=== PATIENT | female | born 1950 | race Asian ===

== ENCOUNTER 2020-06-16 10:39 | Day surgery (SDC) | payer OTHER, SELFPAY ==
[~2020-06-16] VITALS: Ht 157.5 cm; Wt 49.9 kg
[~2020-06-16 10:39] MED LIST: ALEN70TA27 PO; HCTZ; LOSA1TAB3 PO; SIMV10TA2 PO; SYNTHROID
[2020-06-16] MEDS ORDERED: MEPERIDINE HCL/PF 100 MG/ML AMP ONE (11:07)
[2020-06-16] MEDS ORDERED: MIDAZOLAM HCL 5 MG/5 ML VIAL ONE (11:08)
[2020-06-16] MEDS ORDERED: SIMETHICONE 40 MG/0.6 ML ML ONE (11:09)
[2020-06-16 14:33] VITALS: BP_SYST 158
== END 2020-06-16 14:20 | disposition home or self-care (01) ==
LOC: SDS 10:39 → SMU 10:41 → SDS 14:20
PROVIDERS: ATTEND Internal Medicine Gastroenterology
DX: T85.518A Breakdown (mechanical) of other gastrointestinal prosthetic devices, implants and grafts, initial encounter (principal); I10 Essential (primary) hypertension; Z86.73 Personal history of transient ischemic attack (TIA), and cerebral infarction without residual deficits; E78.5 Hyperlipidemia, unspecified; Y83.8 Other surgical procedures as the cause of abnormal reaction of the patient, or of later complication, without mention of misadventure at the time of the procedure; Z20.828 Contact with and (suspected) exposure to other viral communicable diseases
CPT/HCPCS: 43246; G0378; J2175; J2250; U0003; 43760

== ENCOUNTER 2020-11-08 04:10 | Inpatient (IN) | payer OTHER, SELFPAY ==
[~2020-11-08] VITALS: Ht 165.1 cm; Wt 44.9 kg
[2020-11-08] VITALS (7 sets, daily range): BP systolic 95–138
[2020-11-08] MEDS ORDERED: LIP40 PO (04:47)
[2020-11-08] MEDS ORDERED: HYDR12.55 PO (04:47)
[2020-11-08] MEDS ORDERED: PEG15DRO5 EACH EYE (04:50)
[2020-11-08] MEDS ORDERED: CHOL200026 PO (04:50)
[2020-11-08] MEDS ORDERED: RIVA20TA PO (04:50)
[2020-11-08] MEDS ORDERED: MODA200T48 PO (04:50)
[2020-11-08] MEDS ORDERED: KETO60CR2 TP (04:50)
[2020-11-08 04:56] LABS: BASOPHILS # (AUTO) 0.1 K/uL (0.0-0.2); BASOPHILS % (AUTO) 0.5 % (0.0-2.0); EOSINOPHILS # (AUTO) 0.1 K/uL (0.0-0.4); EOSINOPHILS % (AUTO) 0.6 % (0.0-4.0); HEMOGLOBIN 12.6 g/dL (12.0-16.0); MEAN CORPUSCULAR HEMOGLOBIN 27 pg (27-31); MEAN CORPUSCULAR HGB CONC 33 % (32-36); MEAN CORPUSCULAR VOLUME 82 fL (79.0-98.0); MONOCYTES # (AUTO) 0.5 K/uL (0.0-1.0); MONOCYTES % (AUTO) 3.6 % (1.7-9.3); NEUTROPHILS # (AUTO) 11.1 K/uL (1.8-7.7); NEUTROPHILS % (AUTO) 87.3 % (40.0-70.0); PLATELET COUNT (AUTO) 638 K/uL (130-430); RED BLOOD CELL COUNT(AUTO) 4.63 MIL/uL (4.2-6.2); RED CELL DISTRIBUTION WIDTH 15.9 % (9.0-15.0); WHITE BLOOD COUNT (AUTO) 12.8 K/uL (4.8-10.8)
[2020-11-08 05:09] LABS: ALBUMIN 2.3 g/dL (3.4-4.8); CALCIUM 8.6 mg/dL (8.4-11.0); CREATININE 0.4 mg/dL (0.55-1.30); POTASSIUM 3.7 mmol/L (3.5-5.1); PROTHROMBIN TIME 10.7 SECS (9.5-12.5); TOTAL BILIRUBIN 0.6 mg/dL (0.0-1.0)
[2020-11-08] MEDS ORDERED: LEVOFLOXACIN 500 MG/D5W 100 ML IV ONE (05:30)
[2020-11-08] MEDS ORDERED: AZITHROMYCIN 500 MG in NS 250 ML IV ONE (05:30)
[2020-11-08] MEDS ORDERED: AZITHROMYCIN 500 MG/VIAL (ZITHROMAX) IV ONE (05:45)
[2020-11-08 06:06] LABS: BILIRUBIN,URINE NEGATIVE (NEGATIVE); CLARITY/URINE CLEAR (CLEAR); COLOR,URINE YELLOW (YELLOW); GLUCOSE,URINE NEGATIVE (NEGATIVE); KETONES,URINE NEGATIVE (NEGATIVE); LEUKOCYTE ESTERASE ,URINE NEGATIVE (NEGATIVE); NITRITE, URINE NEGATIVE (NEGATIVE); PROTEIN URINE NEGATIVE (NEGATIVE)
[2020-11-08 06:07] LABS: BLOOD, URINE TRACE (NEGATIVE)
[2020-11-08 06:32] LABS: BACTERIA,URINE None Seen /HPF (None Seen); WBC,URINE 0-3 /HPF (0-3); YEAST,URINE None Seen /HPF (None Seen)
[2020-11-08] MEDS ORDERED: ALBUTEROL SULFATE 0.083% 2.5 MG/3 ML VIAL.NEB INH PRN (07:45)
[2020-11-08] MEDS: CLINDAMYCIN 600 mg/50mL D5W 50 ML IV SCH ×3 (08:00→17:20)
[2020-11-08] MEDS ORDERED: RIVAROXABAN 10 MG TABLET PO ONE (09:00)
[2020-11-08] MEDS: KETOCONAZOLE 2%, 60 GM TOPICAL CREAM. (NIZORAL) TP SCH (09:00)
[2020-11-08] MEDS: AZITHROMYCIN 500 MG in NS 250 ML IV SCH ×2 (11:00→11:39)
[2020-11-08] MEDS: PEG 400/HYPROMELLOSE/GLYCERIN 15 ML DROPS EACH EYE SCH ×4 (11:38→21:13)
[2020-11-08] MEDS: ATORVASTATIN 20 MG TABLET PO SCH (11:38)
[2020-11-08] MEDS: HYDROCHLOROTHIAZIDE 12.5 MG CAPSULE (HCTZ) PO SCH (11:39)
[2020-11-08] MEDS: LOSARTAN POTASSIUM 50 MG TABLET (COZAAR) PO SCH (11:44)
[2020-11-08] MEDS: CEFEPIME 0.5 GM in D5W 50 ML IV SCH (20:10)
[2020-11-08] MEDS: metroNIDAZOLE 250 mg/NS 50 ML IV SCH (20:10)
[2020-11-08] MEDS ORDERED: SIMVASTATIN 10 MG TABLET PO SCH (21:00)
[2020-11-09] VITALS: BP_SYST 120
[2020-11-09 04:00] VITALS: BP_SYST 117
[2020-11-09 07:14] LABS: BASOPHILS # (AUTO) 0.1 K/uL (0.0-0.2); BASOPHILS % (AUTO) 0.6 % (0.0-2.0); EOSINOPHILS # (AUTO) 0.1 K/uL (0.0-0.4); EOSINOPHILS % (AUTO) 1.4 % (0.0-4.0); HEMATOCRIT 32.9 % (36-48); HEMOGLOBIN 11.1 g/dL (12.0-16.0); LYMPHOCYTES # (AUTO) 1.1 K/uL (1.0-5.5); LYMPHOCYTES % (AUTO) 12.1 % (20.5-51.5); MEAN CORPUSCULAR HEMOGLOBIN 29 pg (27-31); MEAN CORPUSCULAR HGB CONC 34 % (32-36); MEAN CORPUSCULAR VOLUME 85 fL (79.0-98.0); MONOCYTES # (AUTO) 0.5 K/uL (0.0-1.0); MONOCYTES % (AUTO) 5.9 % (1.7-9.3); NEUTROPHILS # (AUTO) 7.4 K/uL (1.8-7.7); PLATELET COUNT (AUTO) 526 K/uL (130-430); RED BLOOD CELL COUNT(AUTO) 3.88 MIL/uL (4.2-6.2); RED CELL DISTRIBUTION WIDTH 15.8 % (9.0-15.0); WHITE BLOOD COUNT (AUTO) 9.3 K/uL (4.8-10.8)
[2020-11-09 07:34] LABS: ALBUMIN 2.2 g/dL (3.4-4.8); CALCIUM 8.7 mg/dL (8.4-11.0); CREATININE 0.59 mg/dL (0.55-1.30); POTASSIUM 4.1 mmol/L (3.5-5.1); TOTAL BILIRUBIN 0.4 mg/dL (0.0-1.0)
[2020-11-09] MEDS ORDERED: HYDROCHLOROTHIAZIDE 12.5 MG CAPSULE (HCTZ) ONE (09:42)
[2020-11-09] MEDS ORDERED: LOSARTAN POTASSIUM 50 MG TABLET (COZAAR) ONE (09:42)
[2020-11-09] MEDS: CEFEPIME 0.5 GM in D5W 50 ML IV SCH ×2 (09:44→21:00)
[2020-11-09] MEDS: LOSARTAN POTASSIUM 50 MG TABLET (COZAAR) PO SCH (09:45)
[2020-11-09] MEDS: HYDROCHLOROTHIAZIDE 12.5 MG CAPSULE (HCTZ) PO SCH (09:45)
[2020-11-09] MEDS: ATORVASTATIN 20 MG TABLET PO SCH (09:45)
[2020-11-09] MEDS: RIVAROXABAN 10 MG TABLET PO SCH (09:46)
[2020-11-09] MEDS: PEG 400/HYPROMELLOSE/GLYCERIN 15 ML DROPS EACH EYE SCH ×4 (10:03→20:43)
[2020-11-09] MEDS: KETOCONAZOLE 2%, 60 GM TOPICAL CREAM. (NIZORAL) TP SCH (10:03)
[2020-11-09] MEDS: metroNIDAZOLE 250 mg/NS 50 ML IV SCH ×2 (10:28→20:43)
[2020-11-09 12:05] VITALS: BP_SYST 139
[2020-11-09 16:26] VITALS: BP_SYST 118
[2020-11-09 20:00] VITALS: BP_SYST 129
[2020-11-10] VITALS: BP_SYST 138
[2020-11-10 10:20] VITALS: BP_SYST 124
[2020-11-10] MEDS: PEG 400/HYPROMELLOSE/GLYCERIN 15 ML DROPS EACH EYE SCH ×4 (10:25→20:32)
[2020-11-10] MEDS: metroNIDAZOLE 250 mg/NS 50 ML IV SCH (10:26)
[2020-11-10] MEDS: KETOCONAZOLE 2%, 60 GM TOPICAL CREAM. (NIZORAL) TP SCH (10:26)
[2020-11-10] MEDS: HYDROCHLOROTHIAZIDE 12.5 MG CAPSULE (HCTZ) PO SCH (10:27)
[2020-11-10] MEDS: ATORVASTATIN 20 MG TABLET PO SCH (10:27)
[2020-11-10] MEDS: LOSARTAN POTASSIUM 50 MG TABLET (COZAAR) PO SCH (10:27)
[2020-11-10] MEDS: RIVAROXABAN 10 MG TABLET PO SCH (10:42)
[2020-11-10] MEDS: CEFEPIME 0.5 GM in D5W 50 ML IV SCH ×2 (11:30→20:32)
[2020-11-10 11:33] VITALS: BP_SYST 125
[2020-11-10] MEDS: DEXAMETHASONE SOD PHOSPHATE 10 MG/ML VIAL IVP SCH (12:00)
[2020-11-10] MEDS: ACETAMINOPHEN 325 MG TABLET PO PRN (12:00)
[2020-11-10 15:59] VITALS: BP_SYST 104
[2020-11-10 20:07] VITALS: BP_SYST 113
[2020-11-10] MEDS: DOXYCYCLINE HYCLATE 100 MG CAPSULE PO SCH (20:32)
[2020-11-11] VITALS: BP_SYST 100
[2020-11-11 08:10] LABS: ALBUMIN 2.3 g/dL (3.4-4.8); CALCIUM 9.1 mg/dL (8.4-11.0); CREATININE 0.46 mg/dL (0.55-1.30); POTASSIUM 3.9 mmol/L (3.5-5.1); TOTAL BILIRUBIN 0.3 mg/dL (0.0-1.0)
[2020-11-11 08:13] VITALS: BP_SYST 100
[2020-11-11 09:15] VITALS: BP_SYST 131
[2020-11-11] MEDS: CEFEPIME 0.5 GM in D5W 50 ML IV SCH ×2 (09:31→20:36)
[2020-11-11] MEDS: DOXYCYCLINE HYCLATE 100 MG CAPSULE PO SCH ×2 (09:31→20:36)
[2020-11-11] MEDS: HYDROCHLOROTHIAZIDE 12.5 MG CAPSULE (HCTZ) PO SCH (09:32)
[2020-11-11] MEDS: LOSARTAN POTASSIUM 50 MG TABLET (COZAAR) PO SCH (09:32)
[2020-11-11] MEDS: ATORVASTATIN 20 MG TABLET PO SCH (09:32)
[2020-11-11] MEDS: KETOCONAZOLE 2%, 60 GM TOPICAL CREAM. (NIZORAL) TP SCH (09:33)
[2020-11-11] MEDS: RIVAROXABAN 10 MG TABLET PO SCH (09:33)
[2020-11-11] MEDS: PEG 400/HYPROMELLOSE/GLYCERIN 15 ML DROPS EACH EYE SCH ×4 (09:33→20:37)
[2020-11-11 12:10] VITALS: BP_SYST 121
[2020-11-11] MEDS: DEXAMETHASONE SOD PHOSPHATE 10 MG/ML VIAL IVP SCH (12:36)
[2020-11-11 16:12] VITALS: BP_SYST 123
[2020-11-11 20:00] VITALS: BP_SYST 103
[2020-11-12] VITALS (7 sets, daily range): BP systolic 103–120
[2020-11-12 08:31] LABS: ALANINE AMINOTRANSFERASE 44 U/L (12-78); ALBUMIN 2.1 g/dL (3.4-4.8); ASPARTATE AMINOTRANSFERASE 23 U/L (10-37); CALCIUM 8.9 mg/dL (8.4-11.0); CHLORIDE 101 mmol/L (98-107); GLUCOSE 90 mg/dL (70-99); POTASSIUM 4.3 mmol/L (3.5-5.1); SODIUM SERUM 137 mmol/L (136-145); TOTAL BILIRUBIN 0.2 mg/dL (0.0-1.0); UREA NITROGEN, BLOOD 29 mg/dL (8-21)
[2020-11-12 08:43] LABS: ANION GAP < 3 (5-15); GFR AFRICAN AMERICAN 204 mL/min (>90)
[2020-11-12] MEDS: CEFEPIME 0.5 GM in D5W 50 ML IV SCH ×2 (08:45→20:30)
[2020-11-12] MEDS: PEG 400/HYPROMELLOSE/GLYCERIN 15 ML DROPS EACH EYE SCH ×4 (08:45→20:30)
[2020-11-12] MEDS: LOSARTAN POTASSIUM 50 MG TABLET (COZAAR) PO SCH (08:59)
[2020-11-12] MEDS: HYDROCHLOROTHIAZIDE 12.5 MG CAPSULE (HCTZ) PO SCH (09:00)
[2020-11-12] MEDS: ATORVASTATIN 20 MG TABLET PO SCH (09:00)
[2020-11-12] MEDS: RIVAROXABAN 10 MG TABLET PO SCH (09:00)
[2020-11-12] MEDS: DOXYCYCLINE HYCLATE 100 MG CAPSULE PO SCH ×2 (09:00→20:30)
[2020-11-12] MEDS: KETOCONAZOLE 2%, 60 GM TOPICAL CREAM. (NIZORAL) TP SCH (09:00)
[2020-11-12] MEDS: DEXAMETHASONE SOD PHOSPHATE 10 MG/ML VIAL IVP SCH (11:34)
[2020-11-13] VITALS: BP_SYST 103
[2020-11-13 08:00] VITALS: BP_SYST 101
[2020-11-13 08:30] LABS: ALBUMIN 2.2 g/dL (3.4-4.8); CREATININE 0.43 mg/dL (0.55-1.30); POTASSIUM 3.9 mmol/L (3.5-5.1); TOTAL BILIRUBIN 0.3 mg/dL (0.0-1.0)
[2020-11-13] MEDS: KETOCONAZOLE 2%, 60 GM TOPICAL CREAM. (NIZORAL) TP SCH (08:31)
[2020-11-13] MEDS: PEG 400/HYPROMELLOSE/GLYCERIN 15 ML DROPS EACH EYE SCH ×4 (08:31→20:27)
[2020-11-13] MEDS: ATORVASTATIN 20 MG TABLET PO SCH (08:32)
[2020-11-13] MEDS: DOXYCYCLINE HYCLATE 100 MG CAPSULE PO SCH ×2 (08:32→20:28)
[2020-11-13] MEDS: RIVAROXABAN 10 MG TABLET PO SCH (08:37)
[2020-11-13] MEDS: CEFEPIME 0.5 GM in D5W 50 ML IV SCH ×2 (08:47→20:27)
[2020-11-13] MEDS: HYDROCHLOROTHIAZIDE 12.5 MG CAPSULE (HCTZ) PO SCH (08:48)
[2020-11-13] MEDS: LOSARTAN POTASSIUM 50 MG TABLET (COZAAR) PO SCH (08:48)
[2020-11-13 11:27] VITALS: BP_SYST 97
[2020-11-13] MEDS: DEXAMETHASONE SOD PHOSPHATE 10 MG/ML VIAL IVP SCH (11:29)
[2020-11-13 15:40] VITALS: BP_SYST 96
[2020-11-13 20:00] VITALS: BP_SYST 101
[2020-11-14] VITALS (8 sets, daily range): BP systolic 94–116
[2020-11-14 08:14] LABS: ALANINE AMINOTRANSFERASE 37 U/L (12-78); ALBUMIN 2.2 g/dL (3.4-4.8); ASPARTATE AMINOTRANSFERASE 29 U/L (10-37); CALCIUM 8.6 mg/dL (8.4-11.0); CHLORIDE 101 mmol/L (98-107); CREATININE 0.41 mg/dL (0.55-1.30); GLUCOSE 98 mg/dL (70-99); POTASSIUM 4.3 mmol/L (3.5-5.1); SODIUM SERUM 138 mmol/L (136-145); TOTAL BILIRUBIN 0.3 mg/dL (0.0-1.0); UREA NITROGEN, BLOOD 27 mg/dL (8-21)
[2020-11-14 08:34] LABS: GFR AFRICAN AMERICAN 198 mL/min (>90)
[2020-11-14 08:37] LABS: ANION GAP < 3 (5-15)
[2020-11-14] MEDS: CEFEPIME 0.5 GM in D5W 50 ML IV SCH ×2 (09:06→20:44)
[2020-11-14] MEDS: DOXYCYCLINE HYCLATE 100 MG CAPSULE PO SCH ×2 (09:07→20:44)
[2020-11-14] MEDS: ATORVASTATIN 20 MG TABLET PO SCH (09:07)
[2020-11-14] MEDS: HYDROCHLOROTHIAZIDE 12.5 MG CAPSULE (HCTZ) PO SCH (09:07)
[2020-11-14] MEDS: PEG 400/HYPROMELLOSE/GLYCERIN 15 ML DROPS EACH EYE SCH ×4 (09:08→20:44)
[2020-11-14] MEDS: RIVAROXABAN 10 MG TABLET PO SCH (09:08)
[2020-11-14] MEDS: LOSARTAN POTASSIUM 50 MG TABLET (COZAAR) PO SCH (09:08)
[2020-11-14] MEDS: KETOCONAZOLE 2%, 60 GM TOPICAL CREAM. (NIZORAL) TP SCH (09:09)
[2020-11-14] MEDS: DEXAMETHASONE SOD PHOSPHATE 10 MG/ML VIAL IVP SCH (11:41)
[2020-11-14] MEDS: ACETAMINOPHEN 325 MG TABLET PO PRN (11:55)
[2020-11-15] VITALS: BP_SYST 101
[2020-11-15 07:45] VITALS: BP_SYST 148
[2020-11-15] MEDS: ATORVASTATIN 20 MG TABLET PO SCH (09:43)
[2020-11-15] MEDS: LOSARTAN POTASSIUM 50 MG TABLET (COZAAR) PO SCH (09:44)
[2020-11-15] MEDS: DOXYCYCLINE HYCLATE 100 MG CAPSULE PO SCH ×2 (09:44→21:52)
[2020-11-15] MEDS: HYDROCHLOROTHIAZIDE 12.5 MG CAPSULE (HCTZ) PO SCH (09:44)
[2020-11-15] MEDS: RIVAROXABAN 10 MG TABLET PO SCH (09:45)
[2020-11-15] MEDS: KETOCONAZOLE 2%, 60 GM TOPICAL CREAM. (NIZORAL) TP SCH (09:59)
[2020-11-15] MEDS: PEG 400/HYPROMELLOSE/GLYCERIN 15 ML DROPS EACH EYE SCH ×4 (10:00→21:53)
[2020-11-15 11:35] VITALS: BP_SYST 126
[2020-11-15] MEDS: DEXAMETHASONE SOD PHOSPHATE 10 MG/ML VIAL IVP SCH (12:56)
[2020-11-15 16:09] VITALS: BP_SYST 112
[2020-11-15 20:00] VITALS: BP_SYST 133
[2020-11-16] VITALS: BP_SYST 141
[2020-11-16 07:55] VITALS: BP_SYST 122
[2020-11-16 08:39] LABS: BASOPHILS % (AUTO) 0.4 % (0.0-2.0); EOSINOPHILS # (AUTO) 0.1 K/uL (0.0-0.4); EOSINOPHILS % (AUTO) 0.8 % (0.0-4.0); HEMATOCRIT 35.8 % (36-48); HEMOGLOBIN 11.9 g/dL (12.0-16.0); LYMPHOCYTES % (AUTO) 18.2 % (20.5-51.5); MEAN CORPUSCULAR HEMOGLOBIN 28 pg (27-31); MEAN CORPUSCULAR HGB CONC 33 % (32-36); MEAN CORPUSCULAR VOLUME 83 fL (79.0-98.0); MONOCYTES # (AUTO) 0.8 K/uL (0.0-1.0); MONOCYTES % (AUTO) 7.6 % (1.7-9.3); NEUTROPHILS # (AUTO) 7.9 K/uL (1.8-7.7); PLATELET COUNT (AUTO) 353 K/uL (130-430); RED CELL DISTRIBUTION WIDTH 17.8 % (9.0-15.0); WHITE BLOOD COUNT (AUTO) 10.8 K/uL (4.8-10.8)
[2020-11-16] MEDS: ATORVASTATIN 20 MG TABLET PO SCH (09:14)
[2020-11-16] MEDS: LOSARTAN POTASSIUM 50 MG TABLET (COZAAR) PO SCH (09:14)
[2020-11-16] MEDS: HYDROCHLOROTHIAZIDE 12.5 MG CAPSULE (HCTZ) PO SCH (09:14)
[2020-11-16] MEDS: DOXYCYCLINE HYCLATE 100 MG CAPSULE PO SCH ×2 (09:14→20:44)
[2020-11-16] MEDS: RIVAROXABAN 10 MG TABLET PO SCH (09:15)
[2020-11-16] MEDS: KETOCONAZOLE 2%, 60 GM TOPICAL CREAM. (NIZORAL) TP SCH (09:17)
[2020-11-16] MEDS: PEG 400/HYPROMELLOSE/GLYCERIN 15 ML DROPS EACH EYE SCH ×4 (09:18→20:45)
[2020-11-16] MEDS: DEXAMETHASONE SOD PHOSPHATE 10 MG/ML VIAL IVP SCH (11:57)
[2020-11-16 12:05] VITALS: BP_SYST 123
[2020-11-16 16:02] VITALS: BP_SYST 119
[2020-11-16 20:00] VITALS: BP_SYST 142
[2020-11-17] VITALS: BP_SYST 147
[2020-11-17 08:00] VITALS: BP_SYST 114
[2020-11-17 08:16] VITALS: BP_SYST 147
[2020-11-17] MEDS: PEG 400/HYPROMELLOSE/GLYCERIN 15 ML DROPS EACH EYE SCH ×4 (09:38→20:49)
[2020-11-17] MEDS: LOSARTAN POTASSIUM 50 MG TABLET (COZAAR) PO SCH (09:38)
[2020-11-17] MEDS: KETOCONAZOLE 2%, 60 GM TOPICAL CREAM. (NIZORAL) TP SCH (09:39)
[2020-11-17] MEDS: HYDROCHLOROTHIAZIDE 12.5 MG CAPSULE (HCTZ) PO SCH (09:39)
[2020-11-17] MEDS: ATORVASTATIN 20 MG TABLET PO SCH (09:39)
[2020-11-17] MEDS: RIVAROXABAN 10 MG TABLET PO SCH (09:40)
[2020-11-17 12:00] VITALS: BP_SYST 126
[2020-11-17] MEDS: DEXAMETHASONE SOD PHOSPHATE 10 MG/ML VIAL IVP SCH (12:09)
[2020-11-17] MEDS: AZTREONAM 1 GM in NS 50 ML IV SCH ×2 (14:19→20:52)
[2020-11-17 16:00] VITALS: BP_SYST 131
[2020-11-17 20:45] VITALS: BP_SYST 126
[2020-11-18 00:34] VITALS: BP_SYST 143
[2020-11-18] MEDS: AZTREONAM 1 GM in NS 50 ML IV SCH ×3 (05:45→21:40)
[2020-11-18 07:28] LABS: BASOPHILS # (AUTO) 0.1 K/uL (0.0-0.2); BASOPHILS % (AUTO) 0.4 % (0.0-2.0); EOSINOPHILS # (AUTO) 0.1 K/uL (0.0-0.4); EOSINOPHILS % (AUTO) 0.5 % (0.0-4.0); HEMOGLOBIN 12.1 g/dL (12.0-16.0); LYMPHOCYTES # (AUTO) 2.2 K/uL (1.0-5.5); LYMPHOCYTES % (AUTO) 17.4 % (20.5-51.5); MEAN CORPUSCULAR HEMOGLOBIN 27 pg (27-31); MEAN CORPUSCULAR HGB CONC 33 % (32-36); MEAN CORPUSCULAR VOLUME 82 fL (79.0-98.0); MONOCYTES % (AUTO) 7.6 % (1.7-9.3); NEUTROPHILS # (AUTO) 9.6 K/uL (1.8-7.7); NEUTROPHILS % (AUTO) 74.1 % (40.0-70.0); PLATELET COUNT (AUTO) 336 K/uL (130-430); RED BLOOD CELL COUNT(AUTO) 4.53 MIL/uL (4.2-6.2); RED CELL DISTRIBUTION WIDTH 18.1 % (9.0-15.0); WHITE BLOOD COUNT (AUTO) 12.9 K/uL (4.8-10.8)
[2020-11-18 08:00] VITALS: BP_SYST 127
[2020-11-18] MEDS: PEG 400/HYPROMELLOSE/GLYCERIN 15 ML DROPS EACH EYE SCH ×4 (08:29→20:18)
[2020-11-18] MEDS: KETOCONAZOLE 2%, 60 GM TOPICAL CREAM. (NIZORAL) TP SCH (08:30)
[2020-11-18] MEDS: HYDROCHLOROTHIAZIDE 12.5 MG CAPSULE (HCTZ) PO SCH (08:33)
[2020-11-18] MEDS: ATORVASTATIN 20 MG TABLET PO SCH (08:33)
[2020-11-18] MEDS: RIVAROXABAN 10 MG TABLET PO SCH (08:34)
[2020-11-18] MEDS: LOSARTAN POTASSIUM 50 MG TABLET (COZAAR) PO SCH (08:34)
[2020-11-18] MEDS: DEXAMETHASONE SOD PHOSPHATE 10 MG/ML VIAL IVP SCH (10:45)
[2020-11-18 12:00] VITALS: BP_SYST 118
[2020-11-18 16:00] VITALS: BP_SYST 122
[2020-11-18 20:15] VITALS: BP_SYST 127
[2020-11-19 00:11] VITALS: BP_SYST 127
[2020-11-19] MEDS: AZTREONAM 1 GM in NS 50 ML IV SCH ×3 (05:56→21:45)
[2020-11-19 08:00] VITALS: BP_SYST 131
[2020-11-19] MEDS: ATORVASTATIN 20 MG TABLET PO SCH (08:57)
[2020-11-19] MEDS: LOSARTAN POTASSIUM 50 MG TABLET (COZAAR) PO SCH (08:58)
[2020-11-19] MEDS: RIVAROXABAN 10 MG TABLET PO SCH (09:00)
[2020-11-19] MEDS: KETOCONAZOLE 2%, 60 GM TOPICAL CREAM. (NIZORAL) TP SCH (09:05)
[2020-11-19] MEDS: HYDROCHLOROTHIAZIDE 12.5 MG CAPSULE (HCTZ) PO SCH (09:05)
[2020-11-19] MEDS: PEG 400/HYPROMELLOSE/GLYCERIN 15 ML DROPS EACH EYE SCH ×4 (09:05→21:45)
[2020-11-19] MEDS: DEXAMETHASONE SOD PHOSPHATE 10 MG/ML VIAL IVP SCH (11:06)
[2020-11-19 12:00] VITALS: BP_SYST 110
[2020-11-19] MEDS: TOCILIZUMAB 400 MG in NS 100 ML IV ONE ×3 (15:35→16:55)
[2020-11-19 16:00] VITALS: BP_SYST 112
[2020-11-19 20:00] VITALS: BP_SYST 100
[2020-11-20] VITALS (7 sets, daily range): BP systolic 114–148
[2020-11-20] MEDS: AZTREONAM 1 GM in NS 50 ML IV SCH ×3 (06:18→20:59)
[2020-11-20] MEDS: ATORVASTATIN 20 MG TABLET PO SCH (08:43)
[2020-11-20] MEDS: HYDROCHLOROTHIAZIDE 12.5 MG CAPSULE (HCTZ) PO SCH (08:43)
[2020-11-20] MEDS: LOSARTAN POTASSIUM 50 MG TABLET (COZAAR) PO SCH (08:43)
[2020-11-20] MEDS: RIVAROXABAN 10 MG TABLET PO SCH (08:44)
[2020-11-20] MEDS: KETOCONAZOLE 2%, 60 GM TOPICAL CREAM. (NIZORAL) TP SCH (08:45)
[2020-11-20] MEDS: PEG 400/HYPROMELLOSE/GLYCERIN 15 ML DROPS EACH EYE SCH ×4 (09:16→20:59)
[2020-11-20] MEDS: DEXAMETHASONE SOD PHOSPHATE 10 MG/ML VIAL IVP SCH (11:06)
[2020-11-20 11:41] LABS: CALCIUM 9.1 mg/dL (8.4-11.0); CREATININE 0.47 mg/dL (0.55-1.30); POTASSIUM 4.8 mmol/L (3.5-5.1); TOTAL BILIRUBIN 0.3 mg/dL (0.0-1.0)
[2020-11-20 11:51] LABS: ALBUMIN 2.5 g/dL (3.4-4.8)
[2020-11-20] MEDS: NACL 0.9% 1,000 ML IV SCH (15:19)
[2020-11-21] VITALS: BP_SYST 109
[2020-11-21] MEDS: NACL 0.9% 1,000 ML IV SCH (07:00)
[2020-11-21] MEDS: AZTREONAM 1 GM in NS 50 ML IV SCH ×3 (07:00→21:33)
[2020-11-21 07:44] VITALS: BP_SYST 128
[2020-11-21] MEDS: ATORVASTATIN 20 MG TABLET PO SCH (08:16)
[2020-11-21] MEDS: LOSARTAN POTASSIUM 50 MG TABLET (COZAAR) PO SCH (08:17)
[2020-11-21] MEDS: RIVAROXABAN 10 MG TABLET PO SCH (08:17)
[2020-11-21] MEDS: HYDROCHLOROTHIAZIDE 12.5 MG CAPSULE (HCTZ) PO SCH (08:17)
[2020-11-21] MEDS: PEG 400/HYPROMELLOSE/GLYCERIN 15 ML DROPS EACH EYE SCH ×4 (08:18→21:32)
[2020-11-21] MEDS: KETOCONAZOLE 2%, 60 GM TOPICAL CREAM. (NIZORAL) TP SCH (08:18)
[2020-11-21] MEDS: DEXAMETHASONE SOD PHOSPHATE 10 MG/ML VIAL IVP SCH (11:09)
[2020-11-21 11:14] VITALS: BP_SYST 115
[2020-11-21 15:12] VITALS: BP_SYST 120
[2020-11-21 20:33] VITALS: BP_SYST 116
[2020-11-22 00:29] VITALS: BP_SYST 146
[2020-11-22] MEDS: NACL 0.9% 1,000 ML IV SCH ×3 (01:21→21:57)
[2020-11-22] MEDS: AZTREONAM 1 GM in NS 50 ML IV SCH ×3 (05:41→21:57)
[2020-11-22 09:46] VITALS: BP_SYST 134
[2020-11-22] MEDS: LOSARTAN POTASSIUM 50 MG TABLET (COZAAR) PO SCH (09:47)
[2020-11-22] MEDS: HYDROCHLOROTHIAZIDE 12.5 MG CAPSULE (HCTZ) PO SCH (09:47)
[2020-11-22] MEDS: ATORVASTATIN 20 MG TABLET PO SCH (09:47)
[2020-11-22] MEDS: PEG 400/HYPROMELLOSE/GLYCERIN 15 ML DROPS EACH EYE SCH ×4 (09:48→20:08)
[2020-11-22] MEDS: KETOCONAZOLE 2%, 60 GM TOPICAL CREAM. (NIZORAL) TP SCH (09:48)
[2020-11-22] MEDS: DEXAMETHASONE SOD PHOSPHATE 10 MG/ML VIAL IVP SCH (11:47)
[2020-11-22 11:52] VITALS: BP_SYST 128
[2020-11-22 16:41] VITALS: BP_SYST 120
[2020-11-22 20:08] VITALS: BP_SYST 108
[2020-11-23 00:08] VITALS: BP_SYST 133
[2020-11-23] MEDS: AZTREONAM 1 GM in NS 50 ML IV SCH ×3 (05:48→21:10)
[2020-11-23 07:50] VITALS: BP_SYST 136
[2020-11-23 08:00] VITALS: BP_SYST 136
[2020-11-23] MEDS: KETOCONAZOLE 2%, 60 GM TOPICAL CREAM. (NIZORAL) TP SCH (09:14)
[2020-11-23] MEDS: ATORVASTATIN 20 MG TABLET PO SCH (09:15)
[2020-11-23] MEDS: HYDROCHLOROTHIAZIDE 12.5 MG CAPSULE (HCTZ) PO SCH (09:15)
[2020-11-23] MEDS: LOSARTAN POTASSIUM 50 MG TABLET (COZAAR) PO SCH (09:16)
[2020-11-23] MEDS: PEG 400/HYPROMELLOSE/GLYCERIN 15 ML DROPS EACH EYE SCH ×4 (09:16→21:09)
[2020-11-23] MEDS: DEXAMETHASONE SOD PHOSPHATE 10 MG/ML VIAL IVP SCH (10:28)
[2020-11-23 11:31] VITALS: BP_SYST 114
[2020-11-23 16:00] VITALS: BP_SYST 99
[2020-11-23 20:00] VITALS: BP_SYST 130
[2020-11-24] VITALS: BP_SYST 128
[2020-11-24] MEDS: NACL 0.9% 1,000 ML IV SCH ×2 (04:04→18:45)
[2020-11-24] MEDS: AZTREONAM 1 GM in NS 50 ML IV SCH ×3 (05:04→21:25)
[2020-11-24 07:26] LABS: BASOPHILS % (AUTO) 0.5 % (0.0-2.0); EOSINOPHILS # (AUTO) 0.2 K/uL (0.0-0.4); HEMATOCRIT 35.8 % (36-48); HEMOGLOBIN 11.3 g/dL (12.0-16.0); LYMPHOCYTES # (AUTO) 2.3 K/uL (1.0-5.5); LYMPHOCYTES % (AUTO) 34.3 % (20.5-51.5); MEAN CORPUSCULAR HEMOGLOBIN 26 pg (27-31); MEAN CORPUSCULAR HGB CONC 32 % (32-36); MEAN CORPUSCULAR VOLUME 83 fL (79.0-98.0); MONOCYTES # (AUTO) 0.6 K/uL (0.0-1.0); MONOCYTES % (AUTO) 8.7 % (1.7-9.3); NEUTROPHILS # (AUTO) 3.6 K/uL (1.8-7.7); NEUTROPHILS % (AUTO) 53.5 % (40.0-70.0); PLATELET COUNT (AUTO) 194 K/uL (130-430); RED BLOOD CELL COUNT(AUTO) 4.29 MIL/uL (4.2-6.2); RED CELL DISTRIBUTION WIDTH 18.8 % (9.0-15.0); WHITE BLOOD COUNT (AUTO) 6.8 K/uL (4.8-10.8)
[2020-11-24 08:00] VITALS: BP_SYST 130
[2020-11-24] MEDS: ATORVASTATIN 20 MG TABLET PO SCH (09:01)
[2020-11-24] MEDS: LOSARTAN POTASSIUM 50 MG TABLET (COZAAR) PO SCH (09:01)
[2020-11-24] MEDS: KETOCONAZOLE 2%, 60 GM TOPICAL CREAM. (NIZORAL) TP SCH (09:01)
[2020-11-24] MEDS: HYDROCHLOROTHIAZIDE 12.5 MG CAPSULE (HCTZ) PO SCH (09:01)
[2020-11-24] MEDS: PEG 400/HYPROMELLOSE/GLYCERIN 15 ML DROPS EACH EYE SCH ×4 (09:02→21:26)
[2020-11-24] MEDS: DEXAMETHASONE SOD PHOSPHATE 10 MG/ML VIAL IVP SCH (11:15)
[2020-11-24 12:00] VITALS: BP_SYST 141
[2020-11-24 16:00] VITALS: BP_SYST 120
[2020-11-24 20:00] VITALS: BP_SYST 133
[2020-11-25] VITALS: BP_SYST 135
[2020-11-25] MEDS: AZTREONAM 1 GM in NS 50 ML IV SCH ×3 (05:12→21:23)
[2020-11-25 08:04] VITALS: BP_SYST 124
[2020-11-25] MEDS: ATORVASTATIN 20 MG TABLET PO SCH (09:06)
[2020-11-25] MEDS: LOSARTAN POTASSIUM 50 MG TABLET (COZAAR) PO SCH (09:06)
[2020-11-25] MEDS: HYDROCHLOROTHIAZIDE 12.5 MG CAPSULE (HCTZ) PO SCH (09:07)
[2020-11-25] MEDS: PEG 400/HYPROMELLOSE/GLYCERIN 15 ML DROPS EACH EYE SCH ×4 (09:08→21:24)
[2020-11-25] MEDS: KETOCONAZOLE 2%, 60 GM TOPICAL CREAM. (NIZORAL) TP SCH (09:08)
[2020-11-25 11:13] VITALS: BP_SYST 122
[2020-11-25] MEDS: DEXAMETHASONE SOD PHOSPHATE 10 MG/ML VIAL IVP SCH (11:24)
[2020-11-25] MEDS: NACL 0.9% 1,000 ML IV SCH ×2 (11:25→15:38)
[2020-11-25 11:40] LABS: CALCIUM 8.1 mg/dL (8.4-11.0); CREATININE 0.45 mg/dL (0.55-1.30); POTASSIUM 3.5 mmol/L (3.5-5.1)
[2020-11-25 11:46] LABS: ALBUMIN 2.6 g/dL (3.4-4.8); TOTAL BILIRUBIN 0.3 mg/dL (0.0-1.0)
[2020-11-25 15:38] VITALS: BP_SYST 124
[2020-11-25 20:00] VITALS: BP_SYST 130
[2020-11-26] VITALS: BP_SYST 112
[2020-11-26] MEDS: AZTREONAM 1 GM in NS 50 ML IV SCH (05:47)
[2020-11-26 08:08] VITALS: BP_SYST 137
[2020-11-26] MEDS: LOSARTAN POTASSIUM 50 MG TABLET (COZAAR) PO SCH (08:42)
[2020-11-26] MEDS: HYDROCHLOROTHIAZIDE 12.5 MG CAPSULE (HCTZ) PO SCH (08:42)
[2020-11-26] MEDS: PEG 400/HYPROMELLOSE/GLYCERIN 15 ML DROPS EACH EYE SCH (08:43)
[2020-11-26] MEDS: KETOCONAZOLE 2%, 60 GM TOPICAL CREAM. (NIZORAL) TP SCH (08:43)
[2020-11-26] MEDS: ATORVASTATIN 20 MG TABLET PO SCH (08:43)
[2020-11-26 10:41] VITALS: BP_SYST 137
[2020-11-26] MEDS: DEXAMETHASONE SOD PHOSPHATE 10 MG/ML VIAL IVP SCH (11:30)
[2020-11-26 12:00] VITALS: BP_SYST 130
[2020-11-26 12:05] VITALS: BP_SYST 126
== END 2020-11-26 14:10 | disposition home health service (06) | DRG 871 ==
LOC: SED 04:10 → STU 06:05
PROVIDERS: ADMIT Internal Medicine Hospice and Palliative Medicine; ATTEND Internal Medicine Hospice and Palliative Medicine
PROC: XW13325 Transfusion of Convalescent Plasma (Nonautologous) into Peripheral Vein, Percutaneous Approach, New Technology Group 5 (ICD-10-PCS; principal; 2020-11-10)
PROC: XW033E5 Introduction of Remdesivir Anti-infective into Peripheral Vein, Percutaneous Approach, New Technology Group 5 (ICD-10-PCS; 2020-11-11)
PROC: 5A09457 Assistance with Respiratory Ventilation, 24-96 Consecutive Hours, Continuous Positive Airway Pressure (ICD-10-PCS; 2020-11-16)
PROC: 5A09357 Assistance with Respiratory Ventilation, Less than 24 Consecutive Hours, Continuous Positive Airway Pressure (ICD-10-PCS; 2020-11-19)
PROC: 5A09357 Assistance with Respiratory Ventilation, Less than 24 Consecutive Hours, Continuous Positive Airway Pressure (ICD-10-PCS; 2020-11-20)
DX: A41.89 Other specified sepsis (principal); U07.1 COVID-19; J69.0 Pneumonitis due to inhalation of food and vomit; J96.01 Acute respiratory failure with hypoxia; E43 Unspecified severe protein-calorie malnutrition; J12.82 Pneumonia due to coronavirus disease 2019; Z68.1 Body mass index [BMI] 19.9 or less, adult; Z88.0 Allergy status to penicillin; Z86.73 Personal history of transient ischemic attack (TIA), and cerebral infarction without residual deficits; Z93.1 Gastrostomy status
CPT/HCPCS: 36415; 36600; 70486-TC; 71045; 76376; 80053; 81000-TC; 82728; 82803-TC; 82962; 83605; 84484; 85025; 85379; 85610-TC; 85730-TC; 86140; 86886; 86900; 86901; 87040-TC; 87086; 93005; 94640; 94660; 94760; 96365; 96368; G0378; J0456; J0692; J1100; J1956; J3262; J3490; J7050; J7060; J7613; P9017; U0003

== ENCOUNTER 2021-04-04 08:45 | Emergency (ER) | payer OTHER, SELFPAY ==
[~2021-04-04] VITALS: Ht 157.5 cm; Wt 49.9 kg
[2021-04-04 08:45] VITALS: BP_SYST 111
[~2021-04-04 08:45] MED LIST changes: +CHOL200026 PO; +HYDR12.55 PO; +KETO60CR2 TP; +LIP40 PO; +MODA200T48 PO; +PEG15DRO5 EACH EYE; +RIVA20TA PO
[2021-04-04] MEDS ORDERED: GASTROGRAFIN 120 ML ONE (09:26)
[2021-04-04] MEDS ORDERED: cefdinir GT (09:27)
[2021-04-04] MEDS ORDERED: MAGN296S30 GT (10:51)
[2021-04-04] MEDS ORDERED: POLY17PO4 PO (10:52)
[2021-04-04] MEDS ORDERED: BISA10SU61 RC (10:52)
[2021-04-04] MEDS ORDERED: MAGNESIUM CITRATE 300 ML ORAL SOLUTION GT ONE (11:00)
[2021-04-04 11:10] VITALS: BP_SYST 135
== END 2021-04-04 11:10 | disposition home or self-care (01) ==
LOC: SED 08:45
DX: K94.23 Gastrostomy malfunction (principal); L03.311 Cellulitis of abdominal wall
CPT/HCPCS: 43762; 74240; 99284; Q9963

== ENCOUNTER 2021-04-13 15:22 | Emergency (ER) | payer OTHER, SELFPAY ==
[~2021-04-13] VITALS: Ht 157.5 cm; Wt 54.4 kg
[~2021-04-13 15:22] MED LIST changes: +BISA10SU61 RC; +MAGN296S30 GT; +POLY17PO4 PO; +cefdinir GT
[2021-04-13 15:35] VITALS: BP_SYST 86
--- NOTE | 2021-04-13 16:15 | NUR ---
RECEIVED AND IN ROOM 4, FAMILY AT BEDSIDE
--- NOTE | 2021-04-13 16:30 | NUR ---
DR CARRILLO IN TO ASSESS
--- NOTE | 2021-04-13 16:30 | NUR ---
FAMILY AT BEDSIDE, PT TACHYPNEIC, LABS SENT, IV HL 20 GUAGE LT FOREARM
[2021-04-13 16:58] LABS: BASOPHILS % (AUTO) 0.1 % (0.0-2.0); EOSINOPHILS % (AUTO) 0.1 % (0.0-4.0); HEMATOCRIT 35.5 % (36-48); HEMOGLOBIN 11.5 g/dL (12.0-16.0); LYMPHOCYTES # (AUTO) 0.9 K/uL (1.0-5.5); LYMPHOCYTES % (AUTO) 7.4 % (20.5-51.5); MEAN CORPUSCULAR HEMOGLOBIN 26 pg (27-31); MEAN CORPUSCULAR HGB CONC 33 % (32-36); MEAN CORPUSCULAR VOLUME 79 fL (79.0-98.0); MONOCYTES # (AUTO) 0.9 K/uL (0.0-1.0); MONOCYTES % (AUTO) 6.9 % (1.7-9.3); NEUTROPHILS # (AUTO) 10.9 K/uL (1.8-7.7); NEUTROPHILS % (AUTO) 85.5 % (40.0-70.0); PLATELET COUNT (AUTO) 383 K/uL (130-430); RED BLOOD CELL COUNT(AUTO) 4.51 MIL/uL (4.2-6.2); RED CELL DISTRIBUTION WIDTH 15.1 % (9.0-15.0); WHITE BLOOD COUNT (AUTO) 12.7 K/uL (4.8-10.8)
[2021-04-13 17:18] LABS: CALCIUM 9.5 mg/dL (8.4-11.0); CREATININE 0.61 mg/dL (0.55-1.30); POTASSIUM 4.2 mmol/L (3.5-5.1)
[2021-04-13 17:21] LABS: ALBUMIN 2.3 g/dL (3.4-4.8); TOTAL BILIRUBIN 0.3 mg/dL (0.0-1.0)
[2021-04-13] MEDS ORDERED: LEVO250T58 PO (17:40)
[2021-04-13] MEDS ORDERED: ACET-2634 PO (17:40)
[2021-04-13] MEDS ORDERED: cefTRIAXone 1 GM in LIDOCAINE 1%, 20 ML MDV 2.1 ML IM ONE (17:45)
--- NOTE | 2021-04-13 17:52 | NUR ---
RESP LABORED, NONVERBAL , DAUGHTER AT BEDSIDE.
[2021-04-13] MEDS ORDERED: cefTRIAXone 1 GM VIAL ONE (18:07)
[2021-04-13] MEDS ORDERED: LIDOCAINE 1%, 20 ML MDV 20 ML ONE (18:13)
[2021-04-13 18:43] VITALS: BP_SYST 116
--- NOTE | 2021-04-13 18:43 | NUR ---
Patient given written and verbal discharge instructions and verbalizes understanding. ER MD discussed with patient the results and treatment provided. Patient in stable condition. ID arm band removed. IV catheter removed intact and dressing applied, no active bleeding. Rx of ABX given. Patient educated on pain management and to follow up with PMD. Pain Scale 2/10 Opportunity for questions provided and answered. Medication side effect fact sheet provided.
[2021-04-13 19:44] LABS: C-REACTIVE PROTEIN QUANT 45.9 mg/dL (0-0.5)
== END 2021-04-13 18:43 | disposition home or self-care (01) ==
LOC: SED 15:22
DX: J18.8 Other pneumonia, unspecified organism (principal); I10 Essential (primary) hypertension; Z88.0 Allergy status to penicillin; Z88.5 Allergy status to narcotic agent; Z79.899 Other long term (current) drug therapy; Z20.822 Contact with and (suspected) exposure to COVID-19
CPT/HCPCS: 36415; 71045; 80053; 82550; 83605; 83880; 84145; 84484; 85025; 85610; 85730; 86140; 86710; 87040; 87426; 93005; 96365; 99285; J2001